=== PATIENT | female | born 1975 | race Caucasian/White ===

== ENCOUNTER 2022-09-21 21:20 | Emergency (ER) | payer MEDICAID ==
[~2022-09-21] VITALS: Ht 175.3 cm; Wt 100.0 kg
[~2022-09-21 21:20] MED LIST: CIPR-202 PO
[2022-09-21 21:47] LABS: CLARITY,URINE TURBID (Clear); COLOR,URINE RED (Yellow)
[2022-09-21 21:50] LABS: UA COLLECTION TYPE CLN CATCH MIDSTREAM
[2022-09-21 21:56] LABS: BACTERIA,URINE FEW /HPF (Neg); MUCUS STRANDS FEW /LPF (Neg); RBC,URINE TNTC /HPF (0-2); SQUAMOUS EPITHELIAL CELL,UR FEW /LPF (FEW); WBC,URINE 20-30 /HPF (0-4)
[2022-09-22] MEDS ORDERED: HYDROcodone/acetaminophen 5mg/325mg tablet PO ONE (00:40)
[2022-09-22] MEDS ORDERED: ondansetron/PF 4mg/2ml inj IV ONE (00:40)
[2022-09-22] MEDS ORDERED: morphine 4 MG/ML inj SYRINge IV ONE (00:40)
[2022-09-22 00:43] LABS: BASOPHILS % (AUTO) 0.2 % (0-1); EOSINOPHILS # (AUTO) 0.1 X10'3 (0-0.9); EOSINOPHILS % (AUTO) 0.6 % (0-6); HEMATOCRIT 35.1 % (35.0-45.0); HEMOGLOBIN 11.7 g/dl (12.0-16.0); LYMPHOCYTES # (AUTO) 1.6 X10'3 (1.1-4.8); LYMPHOCYTES % (AUTO) 15.4 % (21-51); MEAN CORPUSCULAR HEMOGLOBIN 27.8 PG (27.0-31.0); MEAN CORPUSCULAR HGB CONC 33.3 g/dL (33.0-36.5); MEAN CORPUSCULAR VOLUME 83.4 FL (78-98); MEAN PLATELET VOLUME 7.3 FL (7.4-10.4); MONOCYTES % (AUTO) 9.9 % (2-12); NEUTROPHILS # (AUTO) 7.8 X10'3 (1.8-7.7); NEUTROPHILS % (AUTO) 73.9 % (42-75); PLATELET COUNT 206 X10'3 (140-440); RED BLOOD COUNT 4.21 X10'6 (4.20-5.60); RED CELL DISTRIBUTION WIDTH 14.2 % (11.5-14.5); WHITE BLOOD COUNT 10.5 X10'3 (4.5-11.0)
[2022-09-22 00:57] LABS: ALANINE AMINOTRANSFERASE 34 U/L (12-78); ALBUMIN 2.9 G/DL (3.4-5.0); ALBUMIN/GLOBULIN RATIO 0.7 (1.1-1.5); ALKALINE PHOSPHATASE 81 IU/L (46-116); ANION GAP 3 (8-16); ASPARTATE AMINO TRANSFERASE 32 U/L (10-37); BILIRUBIN,TOTAL 0.5 MG/DL (0.1-1.0); BLOOD UREA NITROGEN 13 MG/DL (7-18); BUN/CREATININE RATIO 8.8 (10.0-20.0); CALCIUM 8.6 MG/DL (8.5-10.1); CHLORIDE 103 MMOL/L (99-107); CREATININE 1.47 MG/DL (0.40-0.90); GLUCOSE 117 MG/DL (70-104); POTASSIUM 3.7 MMOL/L (3.5-5.1); SODIUM 134 MMOL/L (135-145); TOTAL CARBON DIOXIDE 27.6 MMOL/L (24-32); TOTAL PROTEIN 7.2 G/DL (6.4-8.2); eGFR 38 ML/MIN
[2022-09-22] MEDS ORDERED: cephalexin 250mg capsule PO ONE (01:40)
[2022-09-22] MEDS ORDERED: CEPH250T PO (01:44)
[2022-09-22 02:05] VITALS: BP 141/83
== END 2022-09-22 02:09 | disposition home or self-care (01) ==
LOC: ER 21:20
DX: N23 Unspecified renal colic (principal); R31.9 Hematuria, unspecified; K21.9 Gastro-esophageal reflux disease without esophagitis; Z88.0 Allergy status to penicillin; Z88.5 Allergy status to narcotic agent; Z90.49 Acquired absence of other specified parts of digestive tract; Z98.890 Other specified postprocedural states
CPT/HCPCS: 36415; 71045; 80053; 81001; 83605; 83735; 84145; 85025; 87040; 87088; 93005; 96374; 96375; 99285; J2270; J2405

== ENCOUNTER 2022-12-30 14:47 | Emergency (ER) | payer SELFPAY ==
[~2022-12-30] VITALS: Ht 175.3 cm; Wt 110.0 kg
[2022-12-30 14:50] VITALS: BP 145/91; PULSE 89; RESP 19; TEMP 98.8; O2SAT 98
[2022-12-31] MEDS ORDERED: PANT-47 PO (09:36)
[2022-12-31] MEDS ORDERED: NAPR-56 PO (09:36)
== END 2022-12-30 21:45 | disposition left against medical advice (07) ==
LOC: ER 14:48
DX: M79.661 Pain in right lower leg (principal); Z53.21 Procedure and treatment not carried out due to patient leaving prior to being seen by health care provider
CPT/HCPCS: 99281; 99283

== ENCOUNTER 2022-12-31 03:14 | Inpatient (IN) | payer SELFPAY ==
[~2022-12-31] VITALS: Ht 175.3 cm; Wt 96.2 kg
[2022-12-31] MEDS ORDERED: acetaminophen 325mg tablet PO ONE (04:55)
[2022-12-31] MEDS ORDERED: CefTRIAXone/D5W-Rocephin 1gm 50 ML IV ONE (04:55)
[2022-12-31] MEDS ORDERED: vancomycin/NS 1 GM ADD-VANTAGE 250 ML IV ONE (04:55)
[2022-12-31] MEDS ORDERED: normal saline 1000ML IV soln IV ONE (04:55)
[2022-12-31 06:09] LABS: ALANINE AMINOTRANSFERASE 44 U/L (12-78); ALBUMIN 2.8 G/DL (3.4-5.0); ALBUMIN/GLOBULIN RATIO 0.5 (1.1-1.5); ALKALINE PHOSPHATASE 102 IU/L (46-116); ANION GAP 4 (8-16); ASPARTATE AMINO TRANSFERASE 31 U/L (10-37); BILIRUBIN,TOTAL 0.4 MG/DL (0.1-1.0); BLOOD UREA NITROGEN 12 MG/DL (7-18); BUN/CREATININE RATIO 11.2 (10.0-20.0); CHLORIDE 104 MMOL/L (99-107); CREATININE 1.07 MG/DL (0.40-0.90); GLUCOSE 111 MG/DL (70-104); MAGNESIUM 2.1 MG/DL (1.5-2.4); POTASSIUM 3.8 MMOL/L (3.5-5.1); SODIUM 137 MMOL/L (135-145); TOTAL CARBON DIOXIDE 29.1 MMOL/L (24-32); TOTAL PROTEIN 7.9 G/DL (6.4-8.2); eCRCL 66 ML/MIN; eGFR 55 ML/MIN
[2022-12-31 06:13] LABS: BASOPHILS % (AUTO) 0.4 % (0-1); EOSINOPHILS % (AUTO) 0.3 % (0-6); HEMATOCRIT 37.8 % (35.0-45.0); HEMOGLOBIN 12.2 g/dl (12.0-16.0); LYMPHOCYTES # (AUTO) 1.9 X10'3 (1.1-4.8); LYMPHOCYTES % (AUTO) 22.1 % (21-51); MEAN CORPUSCULAR HEMOGLOBIN 23.7 PG (27.0-31.0); MEAN CORPUSCULAR HGB CONC 32.1 g/dL (33.0-36.5); MEAN CORPUSCULAR VOLUME 73.8 FL (78-98); MEAN PLATELET VOLUME 7.8 FL (7.4-10.4); MONOCYTES # (AUTO) 1.5 X10'3 (0-0.9); MONOCYTES % (AUTO) 17.1 % (2-12); NEUTROPHILS # (AUTO) 5.3 X10'3 (1.8-7.7); NEUTROPHILS % (AUTO) 60.1 % (42-75); PLATELET COUNT 230 X10'3 (140-440); RED BLOOD COUNT 5.13 X10'6 (4.20-5.60); RED CELL DISTRIBUTION WIDTH 16.9 % (11.5-14.5); WHITE BLOOD COUNT 8.8 X10'3 (4.5-11.0)
[2022-12-31 07:24] LABS: TOTAL CELLS COUNTED 100
[2022-12-31 07:33] LABS: ANISOCYTOSIS 1+; MICROCYTOSIS 1+; PLATELET ESTIMATE NORMAL
[2022-12-31 07:39] LABS: URINE HCG NEGATIVE (NEG)
[2022-12-31 07:43] LABS: SMUDGE CELLS FEW
[2022-12-31 07:51] LABS: BILIRUBIN,URINE NEGATIVE (Neg); CLARITY,URINE CLOUDY (Clear); COLOR,URINE YELLOW (Yellow); GLUCOSE, URINE NEGATIVE (Neg); KETONES,URINE NEGATIVE (Neg); LEUKOCYTE ESTERASE ,URINE TRACE (Neg); NITRITES, URINE NEGATIVE (Neg); OCCULT BLOOD,URINE NEGATIVE (Neg); PROTEIN,URINE 30 mg/dl (Neg); UROBILINOGEN,URINE 0.2 E.U/dL (0.2-1.0)
[2022-12-31 07:53] LABS: UA COLLECTION TYPE CLN CATCH MIDSTREAM
[2022-12-31 08:01] LABS: SQUAMOUS EPITHELIAL CELL,UR MANY /LPF (FEW)
[2022-12-31 08:02] LABS: HYALINE CASTS 0-3 /LPF (NEGATIVE); MUCUS STRANDS MODERATE /LPF (Neg)
[2022-12-31 08:03] LABS: RBC,URINE 0-2 /HPF (0-2); WBC,URINE 20-30 /HPF (0-4)
[2022-12-31 08:04] LABS: BACTERIA,URINE 1+ /HPF (Neg)
[2022-12-31] MEDS ORDERED: magnesium Cl slow-release 64mg tablet PO PRN (08:10)
[2022-12-31] MEDS ORDERED: magnesium 4gm in 100ml NS 100 ML IV PRN (08:10)
[2022-12-31] MEDS ORDERED: acetaminophen 325mg tablet PO PRN (08:10)
[2022-12-31] MEDS ORDERED: potassium Cl 20 mEq SR tablet PO PRN ×2 (08:10)
[2022-12-31] MEDS ORDERED: magnesium 2GM in 50ml NS 50 ML IV PRN (08:10)
[2022-12-31] MEDS ORDERED: mag hydrox/Alum hydrox/simeth 30ml oral suspension PO PRN (08:10)
[2022-12-31] MEDS ORDERED: morphine 2 MG/ML inj. syringe IV PRN (08:10)
[2022-12-31] MEDS ORDERED: magnesium hydroxide 30ml (MOM) UD suspension PO PRN (08:10)
[2022-12-31] MEDS ORDERED: ondansetron/PF 4mg/2ml inj IV PRN (08:10)
[2022-12-31] MEDS ORDERED: potassium Cl 40MEQ/1/2NS 520ml 520 ML IV PRN (08:10)
[2022-12-31] MEDS ORDERED: NAPR-56 PO (09:36)
[2022-12-31] MEDS ORDERED: PANT-47 PO (09:36)
[2022-12-31 16:27] LABS: URINE AMPHETAMINE SCREEN POSITIVE (Neg); URINE BARBITUATE SCREEN NEGATIVE (Neg); URINE BENZODIAZEPINES SCREEN NEGATIVE (Neg); URINE CANNABINOID SCREEN NEGATIVE (Neg); URINE COCAINE SCREEN NEGATIVE (Neg); URINE METHADONE SCREEN NEGATIVE (Neg); URINE OPIATE SCREEN NEGATIVE (Neg); URINE PHENCYCLIDINE SCREEN NEGATIVE (Neg)
[2022-12-31] MEDS: vancomycin/NS 1 GM ADD-VANTAGE 250 ML IV SCH (17:47)
[2022-12-31] MEDS: morphine 2 MG/ML inj. syringe IV PRN (17:56)
--- NOTE | 2022-12-31 18:13 | NUR ---
Md paged to speak to patient bedside. Pt frustrating with long wait times of transfer upstairs.
[2022-12-31] MEDS: K and/or MAG REPLACEMENT MC SCH (19:05)
[2022-12-31] MEDS: enoxaparin 40mg/0.4ml syringe SQ SCH (19:11)
[2022-12-31 22:00] VITALS: BP 138/77; PULSE 94; RESP 18; TEMP 98.7; O2SAT 98
[2023-01-01] MEDS: morphine 2 MG/ML inj. syringe IV PRN (02:32)
[2023-01-01] MEDS: vancomycin/NS 1 GM ADD-VANTAGE 250 ML IV SCH ×2 (05:06→16:58)
[2023-01-01 06:00] VITALS: BP 132/77; PULSE 94; RESP 14; TEMP 98.7; O2SAT 98
[2023-01-01 06:11] LABS: BASOPHILS # (AUTO) 0.1 X10'3 (0-0.2); BASOPHILS % (AUTO) 1.4 % (0-1); EOSINOPHILS % (AUTO) 0.7 % (0-6); HEMATOCRIT 36.9 % (35.0-45.0); HEMOGLOBIN 11.9 g/dl (12.0-16.0); LYMPHOCYTES # (AUTO) 1.5 X10'3 (1.1-4.8); LYMPHOCYTES % (AUTO) 20.2 % (21-51); MEAN CORPUSCULAR HEMOGLOBIN 23.8 PG (27.0-31.0); MEAN CORPUSCULAR HGB CONC 32.3 g/dL (33.0-36.5); MEAN CORPUSCULAR VOLUME 73.7 FL (78-98); MEAN PLATELET VOLUME 7.7 FL (7.4-10.4); MONOCYTES # (AUTO) 0.8 X10'3 (0-0.9); MONOCYTES % (AUTO) 10.5 % (2-12); NEUTROPHILS # (AUTO) 5.1 X10'3 (1.8-7.7); NEUTROPHILS % (AUTO) 67.2 % (42-75); PLATELET COUNT 196 X10'3 (140-440); RED CELL DISTRIBUTION WIDTH 17.1 % (11.5-14.5); WHITE BLOOD COUNT 7.5 X10'3 (4.5-11.0)
--- NOTE | 2023-01-01 06:30 | NUR ---
Patient in room [facility]TH[facility] 4013. I have received report from Karolina ASKEW and had the opportunity to ask questions and assume patient care.
[2023-01-01 06:33] LABS: ALANINE AMINOTRANSFERASE 39 U/L (12-78); ALBUMIN 2.4 G/DL (3.4-5.0); ALBUMIN/GLOBULIN RATIO 0.5 (1.1-1.5); ALKALINE PHOSPHATASE 83 IU/L (46-116); ANION GAP 6 (8-16); ASPARTATE AMINO TRANSFERASE 25 U/L (10-37); BILIRUBIN,TOTAL 0.3 MG/DL (0.1-1.0); BLOOD UREA NITROGEN 6 MG/DL (7-18); BUN/CREATININE RATIO 7.8 (10.0-20.0); CALCIUM 8.6 MG/DL (8.5-10.1); CHLORIDE 103 MMOL/L (99-107); CREATININE 0.77 MG/DL (0.40-0.90); GLUCOSE 94 MG/DL (70-104); MAGNESIUM 1.9 MG/DL (1.5-2.4); PHOSPHORUS 3.3 MG/DL (2.3-4.5); POTASSIUM 4.2 MMOL/L (3.5-5.1); SODIUM 135 MMOL/L (135-145); TOTAL CARBON DIOXIDE 26.2 MMOL/L (24-32); TOTAL PROTEIN 7.2 G/DL (6.4-8.2); eCRCL 92 ML/MIN; eGFR 80 ML/MIN
[2023-01-01 06:44] LABS: HEMOGLOBIN A1C 5.6 % (4.5-6.2)
--- NOTE | 2023-01-01 06:55 | NUR ---
Problems reprioritized. Patient report given, questions answered & plan of care reviewed with JAMILAH VINCENT.
[2023-01-01 08:00] VITALS: RESP 17; O2SAT 99
[2023-01-01] MEDS: K and/or MAG REPLACEMENT MC SCH ×2 (08:00→20:00)
[2023-01-01] MEDS: CefTRIAXone/D5W-Rocephin 1gm 50 ML IV SCH (08:44)
[2023-01-01 10:00] VITALS: BP 143/98; PULSE 103; RESP 17; TEMP 98.2; O2SAT 99
[2023-01-01] MEDS ORDERED: ketorolac trometh. 30mg/ml inj. IV PRN (10:25)
[2023-01-01] MEDS: acetaminophen 325mg tablet PO PRN ×2 (14:16→22:13)
--- NOTE | 2023-01-01 14:37 | NUR ---
PRESSURE ULCER EDUCATION: DEFINITION: A pressure ulcer is an area of skin that breaks down when you stay in one position too long. The constant pressure against the skin reduces the blood flow to that area and the affected tissue dies. CAUSES: "Being bedridden or in a wheelchair "Fragile skin "Having a chronic condition, such as diabetes or vascular disease "Inability to move certain parts of your body without assistance "Older age "Incontinence of urine or stool SYMPTOMS: "A reddened area that DOES NOT turn white when pressed on - this can be the beginning of a pressure ulcer "A blister, deep sore or a crater - these can be advanced pressure ulcers FIRST AID: "Relieve the pressure on this area "Keep the area clean and dry "Call your primary doctor if you see any of the above symptoms "DO NOT massage the area "DO NOT use a donut shaped or ring shaped pillow- these actually interfere with the blood flow and cause complications PREVENTION: "Check for pressure ulcers everyday "Change position at least every two hours to relieve pressure "Use items that help relieve pressure- pillows, sheepskin, foam padding, and powders. "Keep skin clean and dry "Eat healthy well balanced meals "Exercise daily IF YOU SEE ANY OF THESE SYMPTOMS WHILE IN THE HOSPITAL - TELL YOUR NURSE IMMEDIATELY. IF YOU SEE ANY OF THESE SYMPTOMS WHILE AT HOME OR HAVE ANY QUESTIONS OR CONCERNS ABOUT PRESSURE ULCERS - CALL YOUR PRIMARY DOCTOR IMMEDIATELY. Addendum: 01/01/23 at 1437 by Thierno Singh RN Amended: Links added.
[2023-01-01] MEDS ORDERED: VANCOMYCIN LEVEL IV ONE (16:30)
[2023-01-01 18:00] VITALS: BP 128/83; PULSE 85; RESP 15; TEMP 98.8; O2SAT 98
--- NOTE | 2023-01-01 18:14 | NUR ---
Problems reprioritized. Patient report given, questions answered & plan of care reviewed with Juliet ASKEW.
[2023-01-01 20:00] VITALS: RESP 15; O2SAT 98
[2023-01-01] MEDS: enoxaparin 40mg/0.4ml syringe SQ SCH (20:39)
[2023-01-01] MEDS: famotidine 20mg tablet PO SCH (20:39)
[2023-01-01 22:00] VITALS: BP 126/68; PULSE 89; RESP 18; TEMP 97.8; O2SAT 99
--- NOTE | 2023-01-02 06:26 | NUR ---
Problems reprioritized. Patient report given, questions answered & plan of care reviewed with Romi ASKEW.
[2023-01-02] MEDS: CefTRIAXone/D5W-Rocephin 1gm 50 ML IV SCH (07:07)
[2023-01-02 07:27] LABS: BASOPHILS % (AUTO) 0.4 % (0-1); EOSINOPHILS # (AUTO) 0.1 X10'3 (0-0.9); EOSINOPHILS % (AUTO) 0.8 % (0-6); HEMATOCRIT 37.9 % (35.0-45.0); HEMOGLOBIN 12.2 g/dl (12.0-16.0); LYMPHOCYTES # (AUTO) 1.8 X10'3 (1.1-4.8); LYMPHOCYTES % (AUTO) 23.2 % (21-51); MEAN CORPUSCULAR HEMOGLOBIN 23.6 PG (27.0-31.0); MEAN CORPUSCULAR HGB CONC 32.1 g/dL (33.0-36.5); MEAN CORPUSCULAR VOLUME 73.7 FL (78-98); MEAN PLATELET VOLUME 7.8 FL (7.4-10.4); MONOCYTES % (AUTO) 13.2 % (2-12); NEUTROPHILS # (AUTO) 4.9 X10'3 (1.8-7.7); NEUTROPHILS % (AUTO) 62.4 % (42-75); PLATELET COUNT 235 X10'3 (140-440); RED BLOOD COUNT 5.15 X10'6 (4.20-5.60); RED CELL DISTRIBUTION WIDTH 16.9 % (11.5-14.5); WHITE BLOOD COUNT 7.9 X10'3 (4.5-11.0)
[2023-01-02 07:33] LABS: ALANINE AMINOTRANSFERASE 37 U/L (12-78); ALBUMIN 2.6 G/DL (3.4-5.0); ALBUMIN/GLOBULIN RATIO 0.5 (1.1-1.5); ALKALINE PHOSPHATASE 90 IU/L (46-116); ANION GAP 9 (8-16); ASPARTATE AMINO TRANSFERASE 33 U/L (10-37); BILIRUBIN,TOTAL 0.4 MG/DL (0.1-1.0); BLOOD UREA NITROGEN 9 MG/DL (7-18); BUN/CREATININE RATIO 11.1 (10.0-20.0); CHLORIDE 101 MMOL/L (99-107); CREATININE 0.81 MG/DL (0.40-0.90); GLUCOSE 99 MG/DL (70-104); PHOSPHORUS 3.5 MG/DL (2.3-4.5); POTASSIUM 3.7 MMOL/L (3.5-5.1); SODIUM 136 MMOL/L (135-145); TOTAL CARBON DIOXIDE 25.6 MMOL/L (24-32); TOTAL PROTEIN 7.7 G/DL (6.4-8.2); eCRCL 88 ML/MIN; eGFR 75 ML/MIN
[2023-01-02 08:00] VITALS: RESP 17; O2SAT 99
[2023-01-02] MEDS ORDERED: VANCOMYCIN 1,500MG in NS 300ml IVPB IV SCH (08:00)
[2023-01-02] MEDS: K and/or MAG REPLACEMENT MC SCH (08:00)
[2023-01-02] MEDS: famotidine 20mg tablet PO SCH (08:32)
[2023-01-02] MEDS ORDERED: CLIN150C2 PO (12:48)
[2023-01-02] MEDS ORDERED: LACT1CAP74 PO (12:48)
[2023-01-03] MEDS ORDERED: CefTRIAXone/D5W-Rocephin 1gm 50 ML IV SCH (07:00)
[2023-01-03] MEDS ORDERED: VANCOMYCIN LEVEL IV ONE (19:30)
== END 2023-01-02 14:35 | disposition home or self-care (01) | DRG 603 ==
LOC: ER 03:15 → ED HOLD 08:17 → ORTHO 4S 21:35
PROVIDERS: ADMIT Family Medicine; ATTEND Family Medicine
DX: L03.115 Cellulitis of right lower limb (principal); F15.20 Other stimulant dependence, uncomplicated; M19.90 Unspecified osteoarthritis, unspecified site; K21.9 Gastro-esophageal reflux disease without esophagitis; Z85.41 Personal history of malignant neoplasm of cervix uteri; Z87.442 Personal history of urinary calculi; Z86.19 Personal history of other infectious and parasitic diseases; Z90.49 Acquired absence of other specified parts of digestive tract; Z90.710 Acquired absence of both cervix and uterus; Z88.0 Allergy status to penicillin; Z88.5 Allergy status to narcotic agent; Z91.199 Patient's noncompliance with other medical treatment and regimen due to unspecified reason; Z87.891 Personal history of nicotine dependence; Z80.49 Family history of malignant neoplasm of other genital organs; Z83.3 Family history of diabetes mellitus
CPT/HCPCS: 36415; 71045; 73560; 73590; 80053; 80202; 80305; 81001; 81025; 83036; 83605; 83735; 84100; 84145; 85007; 85025; 87040; 87081; 93926; 93971; 99285; G0378; J0696; J1650; J2270; J2405; J3370; J7030; J7040

== ENCOUNTER 2023-12-15 19:55 | Emergency (ER) | payer MEDICAID ==
[~2023-12-15] VITALS: Ht 175.3 cm; Wt 101.7 kg
[~2023-12-15 19:55] MED LIST changes: -CIPR-202 PO; +LACT1CAP74 PO; +NAPR-56 PO; +PANT-47 PO
[2023-12-15] MEDS ORDERED: HYDR-3973 PO (23:16)
[2023-12-15] MEDS ORDERED: CEPH-585 PO (23:16)
[2023-12-16] MEDS: ondansetron 4mg rapidly disintigrating tab PO ONE (00:03)
[2023-12-16] MEDS: HYDROcodone/acetaminophen 10/325mg tab PO ONE (00:03)
[2023-12-16 00:09] VITALS: BP 150/93; PULSE 95; RESP 16; TEMP 98.1; O2SAT 99
== END 2023-12-16 00:07 | disposition home or self-care (01) ==
LOC: ER 19:56
DX: S02.609A Fracture of mandible, unspecified, initial encounter for closed fracture (principal); K21.9 Gastro-esophageal reflux disease without esophagitis; Z88.0 Allergy status to penicillin; Z88.5 Allergy status to narcotic agent; Z79.899 Other long term (current) drug therapy; Z90.49 Acquired absence of other specified parts of digestive tract; Z98.890 Other specified postprocedural states; Z90.710 Acquired absence of both cervix and uterus; Y08.89XA Assault by other specified means, initial encounter; Y93.89 Activity, other specified; Y92.89 Other specified places as the place of occurrence of the external cause; Y99.8 Other external cause status
CPT/HCPCS: 70486; 99284

== ENCOUNTER 2024-02-21 13:26 | Emergency (ER) | payer MEDICAID ==
[~2024-02-21] VITALS: Ht 175.3 cm; Wt 104.5 kg
[2024-02-21 13:33] VITALS: TEMP 98
[2024-02-21] MEDS: meclizine 12.5mg tablet PO ONE (15:30)
[2024-02-21] MEDS: ondansetron 4mg rapidly disintigrating tab PO ONE (15:32)
[2024-02-21] MEDS ORDERED: ONDA-245 PO (16:06)
[2024-02-21] MEDS ORDERED: MECL-302 PO (16:06)
[2024-02-21 16:31] VITALS: BP 165/96; PULSE 89; RESP 14; O2SAT 91
== END 2024-02-21 16:32 | disposition home or self-care (01) ==
LOC: ER 13:26
DX: R42 Dizziness and giddiness (principal); R11.2 Nausea with vomiting, unspecified; K21.9 Gastro-esophageal reflux disease without esophagitis; Z88.0 Allergy status to penicillin; Z88.5 Allergy status to narcotic agent; Z79.899 Other long term (current) drug therapy; Z85.41 Personal history of malignant neoplasm of cervix uteri; Z90.49 Acquired absence of other specified parts of digestive tract; Z90.710 Acquired absence of both cervix and uterus
CPT/HCPCS: 99283; J8597

== ENCOUNTER 2024-09-19 16:44 | Emergency (ER) | payer MEDICAID ==
[~2024-09-19] VITALS: Ht 175.3 cm; Wt 100.0 kg
[~2024-09-19 16:44] MED LIST changes: +MECL-302 PO; +ONDA-245 PO
--- NOTE | 2024-09-19 18:55 | Physician Documentation ---
History of Present Illness ~ Chief Complaint: Neck pain Stated Complaint: NECK PAIN Time Seen by MD: 18:35 Primary Medical Doctor: JO-ANN SAEED IN HPI This is a 48-year-old female who presents with two days of central back pain to her upper thoracic spine and lower lumbar spine after forcefully sitting back in a couch striking a countertop was behind the couch with her upper back. Patient reports no new numbness or weakness in extremities, no loss of bowel or bladder control, no fever. Patient reports that she did have distant history of cancer and IV drug use. Medication Reconciliation Allergies: Coded Allergies: Penicillins (Verified Allergy, Unknown, 02/21/24) codeine (Verified Allergy, Unknown, 02/21/24) Scheduled Ibuprofen (Ibuprofen), 1 TAB PO Q8H Lactobacillus Rhamnosus GG (Culturelle), 1 CAP PO BID Lidocaine (Lidoderm), 1 PATCH TOP DAILY Meclizine HCl (Meclizine HCl), 1 TAB PO Q8H Ondansetron 8mg ODT (Ondansetron Odt), 1 TAB PO Q6H Pantoprazole Sodium (PROTONIX tablet), 1 TAB PO DAILY, (Reported) Scheduled PRN Naproxen (Naproxen), 1 TAB PO HS PRN for pain, (Reported) Past Medical History Past Medical History: GERD, Hepatitis C, Kidney Stones, UTI, Cervical Cancer/Dysplasia Past Surgical History: cholecystectomy, , hysterectomy, tonsillectomy, other Alcohol Use: None Drug Use: none Lives with: S/O, Other Lives In: Home Occupation: employed Review of Systems ROS Upper and lower back pain as stated above in the HPI, otherwise all systems are reviewed and negative. Physical Exam Physical Exam Vital Signs: Temperature: 97.8, Source: Temporal, Heart Rate: 107, Respiratory Rate: 15, BP: 121/75, Pulse Oximetry: 98, Weight: 100.000 Physical Exam VITALS: Reviewed and as above. GENERAL: Alert, nontoxic appearing, no apparent distress. RESPIRATORY: No increased work of breathing, no respiratory distress, speaking in full clear sentences BACK: Upper thoracic tenderness to palpation with an area of focal midline tenderness without crepitus or step-off, lower lumbar tenderness to palpation with an area of focal midline tenderness without crepitus or step-off MUSCULOSKELETAL: SKIN: Skin of upper back no erythema or ecchymosis Progress Results/Orders Results/Orders Orders - RAMIREZ DIETRICH Thoracic Spine Complete (09/19/24 19:16) Lumbar Spine Limited (09/19/24 19:16) Completed Orders - RAMIREZ DIETRICH Thoracic Spine Complete (09/19/24 19:16) Lumbar Spine Limited (09/19/24 19:16) Ketorolac Trometh 15mg/Ml Vial (Toradol (09/19/24 20:00) Lidocaine 5% Patch (Lidoderm 5% Patch) (09/19/24 20:40) Medications Received in ER Medications (Trade) Dose Ordered Sig/Jaime Route PRN Reason Start Time Stop Time Status Last Admin Dose Admin (Toradol injection) 15 mg ONCE ONCE IM 09/19/24 20:00 09/19/24 20:01 DC 09/19/24 20:20 15 MG (Lidoderm 5% Patch) 1 patch ONCE ONCE TP 09/19/24 20:40 09/19/24 20:41 DC 09/19/24 20:47 1 PATCH Vital Signs 09/19/24 09/19/24 16:48 20:51 Temp 97.8 98.6 Pulse 107 96 Resp 15 16 B/P (MAP) 121/75 120/74 Pulse Ox 98 99 EKG/XRAY/CT/US/VASC/MRI Bone/Soft Tissue X-Ray (Spine) #1: Additional Comment CLINICAL INDICATION: Back Pain After Striking Back on Hard Object TECHNIQUE: 4 radiographic views of the lumbar spine were obtained. Comparison: None FINDINGS/IMPRESSION: 5 qjc-nap-rccbnuh lumbar-type vertebrae. Straightening of the lumbar lordosis. The vertebral body heights are maintained. No evidence of acute traumatic fractures. 4 mm retrolisthesis of L1 on L2. Moderate to severe degenerative changes at L5-S1. Moderate to large amount of fecal material within the colon. Status post cholecystectomy. Electronically Signed by:MALA YAÑEZ DO Date & Time: 09/19/242025 Dictated by: MALA YAÑEZ DO Dictation date and time: 09/19/242025 I have reviewed and agree with the radiology report. I have reviewed and interpreted the imaging as: No fracture noted Bone/Soft Tissue X-Ray (Spine) #2: Additional Comment CLINICAL INDICATION: Back Pain After Striking Back on Hard Object TECHNIQUE: 4 radiographic views of the thoracic spine were obtained. Comparison: None FINDINGS/IMPRESSION: 12 rib-bearing thoracic type vertebrae. Minimal dextroconvex curvature of the thoracic spine. The vertebral body heights are maintained. No evidence of acute traumatic fractures or spondylolisthesis. Multilevel myge-ww-oaqgobed degenerative changes of the thoracic spine. 0.9 x 0.9 cm density posterior to the posterior arch of C1 on the lateral view which may be external to the patient. Moderate to severe degenerative changes C4-C5 and C5-C6 Recommend clinical correlation. Status post cholecystectomy. If symptoms persist, MRI may be considered for further evaluation Electronically Signed by:MALA YAÑEZ DO Date & Time: 09/19/242023 Dictated by: MALA YAÑEZ DO Dictation date and time: 09/19/242023 I have reviewed and agree with the radiology report. I have reviewed and interpreted the imaging as: No fracture noted Medical Decision Making Findings This 48-year-old female presented with upper and lower back pain after sitting forcefully down in a couch striking the back of her upper back on a counter that was behind the couch, it was reassuring patient reported no new weakness or numbness in her extremities and no new loss of bowel or bladder control with no recent fever. Due to pain onset with trauma plain films of the thoracic spine and lumbar spine were obtained though demonstrated no evidence of fracture or traumatic misalignment. Patient was medicated for pain in the department. I suspect back pain is soft tissue related from direct impact hard surface. Remainder of physical exam benign and patient is appropriate for outpatient follow up. Patient provided home care instructions and return to care precautions. Differential Dx:Considerations: Include: Musculoskeletal pain, Strain, Other (Cauda equina, spinal fracture, neurovascular injury) Departure Disposition: 01 HOME / SELF CARE / HOMELESS Impression: Primary Impression: Upper back pain Additional Impression: Lower back pain Qualified Codes: M54.50 - Low back pain, unspecified Condition: Improved Additional Instructions: Your exam and x-rays were reassuring, though there was some chronic appearing changes to your spine that you should follow up with primary care provider about. Please use the prescribed medications as needed for pain as directed. Please follow up with your primary care provider in the next few days. Please return to the emergency department for any new or worsening concerning symptoms. Take ibuprofen with food to avoid stomach upset, do not take ibuprofen for the next 12 hours as you received a Toradol injection here. Do not place heat packs over the lidocaine patches, do not wear lidocaine patches longer than 12 hours and allow 12 hours between applications. Referrals: NO PRIMARY CARE PROVIDER (PCP) Prescriptions Ibuprofen (Ibuprofen) 800 Mg Tablet 1 TAB PO Q8H for pain for 10 Days, #30 TAB 0 Refills Prov: RAMIREZ DIETRICH 09/19/24 Lidocaine (Lidoderm) 5 % Adh..patch 1 PATCH TOP DAILY for 10 Days, #30 PATCH 0 Refills may wear up to 12 hours Prov: RAMIREZ DIETRICH 09/19/24 Education Educated: Patient Educated regarding: diagnosis, treatment, prognosis, need for follow up Signature Scribe Signature: No scribe Attestation: The note accurately reflects work and decisions made by me.MADYSON Ortiz 09/20/24 02:55 RAMIREZ DIETRICH Sep 19, 2024 18:55
[2024-09-19] MEDS: ketorolac trometh 15mg/ml vial 15 MG/ML ML IM ONE (20:20)
--- NOTE | 2024-09-19 20:27 | RADIOLOGY REPORT ---
CLINICAL INDICATION: Back Pain After Striking Back on Hard Object TECHNIQUE: 4 radiographic views of the thoracic spine were obtained. Comparison: None FINDINGS/IMPRESSION: 12 rib-bearing thoracic type vertebrae. Minimal dextroconvex curvature of the thoracic spine. The ve rtebral body heights are maintained. No evidence of acute traumatic fractures or spondylolisthesis. Multilevel wasi-lw-eavcbivr degenerative changes of the thoracic spine. 0.9 x 0.9 cm density posterior to the posterior arch of C1 on the lateral view which may be external to the patient. Moderate to severe degenerative changes C4-C5 and C5-C6 Recommend clinical correlatio n. Status post cholecystectomy. If symptoms persist, MRI may be considered for further evaluation
--- NOTE | 2024-09-19 20:28 | RADIOLOGY REPORT ---
CLINICAL INDICATION: Back Pain After Striking Back on Hard Object TECHNIQUE: 4 radiographic views of the lumbar spine were obtained. Comparison: None FINDINGS/IMPRESSION: 5 tam-iie-qpxfhxg lumbar-type vertebrae. Straightening of the lumbar lordosis. The vertebral body he ights are maintained. No evidence of acute traumatic fractures. 4 mm retrolisthesis of L1 on L2. Mod erate to severe degenerative changes at L5-S1. Moderate to large amount of fecal material within the colon. Status post cholecystectomy.
[2024-09-19] MEDS ORDERED: LIDO700A32 TOP (20:38)
[2024-09-19] MEDS ORDERED: IBUP-1986 PO (20:38)
[2024-09-19] MEDS: LIDOcaine 5% patch TP ONE (20:47)
[2024-09-19 20:51] VITALS: BP 120/74; PULSE 96; RESP 16; TEMP 98.6; O2SAT 99
== END 2024-09-19 20:53 | disposition home or self-care (01) ==
LOC: ER 16:45
DX: M54.6 Pain in thoracic spine (principal); M54.50 Low back pain, unspecified; K21.9 Gastro-esophageal reflux disease without esophagitis; Z85.41 Personal history of malignant neoplasm of cervix uteri; Z88.0 Allergy status to penicillin; Z88.5 Allergy status to narcotic agent; Z90.49 Acquired absence of other specified parts of digestive tract; Z90.710 Acquired absence of both cervix and uterus; Z79.899 Other long term (current) drug therapy; Z87.442 Personal history of urinary calculi
CPT/HCPCS: 72074; 72100; 96372; 99284; J1885

== ENCOUNTER 2025-03-25 15:49 | Emergency (ER) | payer MEDICAID ==
[~2025-03-25] VITALS: Ht 170.2 cm; Wt 103.1 kg
[~2025-03-25 15:49] MED LIST changes: +IBUP-1986 PO; +LIDO-52 TOP
--- NOTE | 2025-03-25 17:48 | Physician Documentation ---
History of Present Illness ~ Chief Complaint: Bite-animal Stated Complaint: DOG BITE Time Seen by MD: 17:38 OK to notify your PCP?: Yes Primary Medical Doctor: JO-ANN SAEED IN Source: patient Mode of Arrival: POV Exam Limitations: no limitations HPI Patient presents secondary to a dog bite that occurred around 230 this afternoon. She was breaking up a dog fight between her neighbor's dogs and was bit on the right wrist. She complains of pain to the site. CMS is intact. Not up-to-date on tetanus. Dog's vaccination status is Up to date. Tetanus within 5 years?: No Medication Reconciliation Allergies: Coded Allergies: Penicillins (Verified Allergy, Unknown, 02/21/24) codeine (Verified Allergy, Unknown, 02/21/24) Scheduled Ibuprofen (Ibuprofen), 1 TAB PO Q8H Lactobacillus Rhamnosus GG (Culturelle), 1 CAP PO BID Lidocaine (Lidoderm), 1 PATCH TOP DAILY Meclizine HCl (Meclizine HCl), 1 TAB PO Q8H Metronidazole* (Flagyl*), 1 TAB PO TID Ondansetron 8mg ODT (Ondansetron Odt), 1 TAB PO Q6H Pantoprazole Sodium (PROTONIX tablet), 1 TAB PO DAILY, (Reported) Sulfamethoxazole/Trimethoprim (Bactrim Ds Tablet), 1 TAB PO Q12H Scheduled PRN Naproxen (Naproxen), 1 TAB PO HS PRN for pain, (Reported) Past Medical History Past Medical History: GERD, Hepatitis C, Kidney Stones, UTI, Cervical Cancer/Dysplasia Past Surgical History: cholecystectomy, , hysterectomy, tonsillectomy, other Alcohol Use: None Drug Use: none Lives with: S/O, Other Lives In: Home Occupation: employed Review of Systems ROS Review of systems negative except documented in HPI. Physical Exam Vital Signs: RN Vital Signs have been reviewed: Yes, Temperature: 98.6, Source: Oral, Heart Rate: 108, Respiratory Rate: 16, BP: 164/99, Pulse Oximetry: 97, Weight: 103.100 Oxygen Flow Rate: 0 Pulse Oximetry Reflects: adequate oxygenation Physical Exam General: Awake, alert, oriented. No apparent distress Extremities: The right wrist has puncture valdivia to the anterior surface x2 and one to the inner wrist. Sensation is intact through her finger. Full ROM. Radial pulse +2. Bleeding is controlled. Neurologic: Alert and oriented x4. Nonfocal Psychiatric: Normal mood and affect. Skin: Normal color. Warm and dry. Progress Results/Orders Results/Orders Completed Orders - CORRINE CHI NP Sulfamethox/Trimetho. Ds Tab (Septra Ds (03/25/25 17:40) Metronidazole Tablet (Flagyl Tablet) (03/25/25 17:50) Medications Received in ER Medications (Trade) Dose Ordered Sig/Jaime Route PRN Reason Start Time Stop Time Status Last Admin Dose Admin (Boostrix vaccine syringe) 0.5 ml ONCE ONCE IMVAC 03/25/25 16:10 03/25/25 16:11 DC 03/25/25 17:51 0.5 ML (Septra DS tab) 1 tab ONCE ONCE PO 03/25/25 17:40 03/25/25 17:41 DC 03/25/25 17:50 1 TAB (Flagyl tablet) 500 mg ONCE ONCE PO 03/25/25 17:50 03/25/25 17:51 DC 03/25/25 17:55 500 MG Vital Signs 03/25/25 03/25/25 15:51 18:23 Temp 98.6 98.6 Pulse 108 92 Resp 16 20 B/P (MAP) 164/99 160/92 Pulse Ox 97 99 O2 Flow Rate 0 Medical Decision Making Additional information obtaine: N/A Findings Patient presents with a dog bite to the right wrist. Bleeding is controlled. CMS is intact. There is no indication for closure. Wound care was provided. Tetanus shot was updated. She will be given prophylactic antibiotics with TMP/SMX and metronidazole given PCN allergrebecca Differential Dx:Considerations: Include: Punture wound, Other Departure Time of Disposition: 17:49 Disposition: 01 HOME / SELF CARE / HOMELESS Impression: Primary Impression: Dog bite Qualified Codes: W54.0XXA - Bitten by dog, initial encounter Condition: Stable Discharge Instructions: Animal Bite, Adult Additional Instructions: Take antibiotics to completion to prevent infection related to the dog bite. Keep wound clean and dry. Do not submerge in water until completely healed. May shower. If increased redness, swelling despite taking antibiotics please return to the emergency department for re-evaluation. Otherwise, recommend that you follow up with your primary care provider within the next week. Referrals: NO PRIMARY CARE PROVIDER (PCP) Prescriptions Sulfamethoxazole/Trimethoprim (Bactrim Ds Tablet) 800 Mg-160 Mg Tablet 1 TAB PO Q12H for 7 Days, #14 TAB Prov: CORRINE CHI CRITICAL POWER TECHNICIAN 03/25/25 Metronidazole* (Flagyl*) 500 Mg Tablet 1 TAB PO TID for 7 Days, #21 TAB Prov: CORRINE CHI NP 03/25/25 Education Educated: Patient Educated regarding: diagnosis, treatment, need for follow up Signature Scribe Signature: No scribe Attestation: The note accurately reflects work and decisions made by me.Corrine Chi - DOMINIC 03/25/25 18:29 This note was created with the assistance of voice recognition software whereby errors in grammar, syntax, and/or spelling may have occurred despite active proofreading efforts by the author. Please do not hesitate to contact the provider for clarification or for questions regarding the content of this document. CORRINE CHI NP Mar 25, 2025 17:48
[2025-03-25] MEDS: sulfamethoxazole/trimethoprim DS (800/160mg) tablet PO ONE (17:50)
[2025-03-25] MEDS ORDERED: SULF1TAB49 PO (17:50)
[2025-03-25] MEDS ORDERED: METR-159 PO (17:50)
[2025-03-25] MEDS: TETanus/Pertussis (Acell)/Diphther VAC/PF (Tdap-Adult) 0.5ml syringe IMVAC ONE (17:51)
[2025-03-25 18:23] VITALS: BP 160/92; PULSE 92; RESP 20; TEMP 98.6; O2SAT 99
== END 2025-03-25 19:58 | disposition home or self-care (01) ==
LOC: ER 15:50
DX: S61.531A Puncture wound without foreign body of right wrist, initial encounter (principal); Z88.0 Allergy status to penicillin; Z88.5 Allergy status to narcotic agent; Z90.49 Acquired absence of other specified parts of digestive tract; Z90.710 Acquired absence of both cervix and uterus; Z85.41 Personal history of malignant neoplasm of cervix uteri; Z86.19 Personal history of other infectious and parasitic diseases; W54.0XXA Bitten by dog, initial encounter; Y93.89 Activity, other specified; Y92.89 Other specified places as the place of occurrence of the external cause; Y99.8 Other external cause status
CPT/HCPCS: 90471; 90715; 99283; A6258; A6449